=== PATIENT | female | born 1960 | race Hispanic/Latino ===

== ENCOUNTER 2017-08-31 14:54 | Outpatient (CLI) | payer SELFPAY ==
--- NOTE | 2017-09-06 14:27 | MMO ---
BILATERAL SCREENING MAMMOGRAM: Date: 08/31/17 INDICATION: Annual exam. COMPARISON: Prior exam dated 07/02/16. FINDINGS: Interpretation of this exam was assisted with computer-aided detection. The breast parenchyma demonstrates scattered fibroglandular elements. No new suspicious mass, cluster of microcalcifications, or area of architectural distortion is eviden t. IMPRESSION: BIRADS 1: Negative Recommend routine annual mammographic screening. POS: WAYLON
== END 2017-08-31 14:55 | disposition home or self-care (01) ==
LOC: SCSMAMMO 14:54
PROVIDERS: ATTEND Internal Medicine
DX: Z12.31 Encounter for screening mammogram for malignant neoplasm of breast (principal)
CPT/HCPCS: 77067